=== PATIENT | female | born 2000 | race Caucasian/White ===

== ENCOUNTER 2020-01-19 09:56 | Emergency (ER) | payer OTHER ==
[2020-01-19] MEDS ORDERED: Acetaminophen TAB* 325 MG PO ONE (10:14)
--- NOTE | 2020-01-19 10:29 | ED ---
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 Patient states that she got into a skiing accident that resulted in her falling directly onto her back. Patient states that she was not able to get up immediately after the accident. Patient reports having pain while taking deep breaths and having pain while walking. She denies head injury, loss of consciousness, neck pain, leg pain, fecal and urinary dysfunction. Patient denies PMHx of scoliosis. Patient took ibuprofen at 0845 on 01/19/2020. Patient' s last menstrual cycle was last week and she denies smoking, alcohol usage, and recreational drug usage. Home Medications Medication Instructions Recorded Confirmed Type Cyclobenzaprine 5 MG (NF) .ROUTE PRN 01/19/20 History - History of Current Complaint Chief Complaint: EDBackInjuryPain Stated Complaint: INJURIES FROM SKIING ACCIDENT PER PT Time Seen by Provider: 01/19/20 10:04 Hx Obtained From: Patient Onset/Duration: Sudden Onset, Still Present Onset/Duration: Still Present Severity Currently: Moderate Pain Intensity: 7 Associated Signs And Symptoms: Negative: Bladder Incontinence, Bowel Incontinence, Other - No loss of conciousness, leg pain, neck pain, head injury - Allergies/Home Medications Allergies/Adverse Reactions: Allergies Allergy/AdvReac Type Severity Reaction Status Date / Time pineapple Allergy Abdominal Verified 01/19/20 10:02 Pain Tree Nuts Allergy Anaphylatic Verified 01/19/20 10:02 Shock stone fruit Allergy Swelling Uncoded 01/19/20 10:02 Of Face,Lips,& Throat Home Medications: Home Medications Cyclobenzaprine 5 MG (NF) .ROUTE PRN 01/19/20 [History] HYDROcodone/ACETAMIN 5-325 MG* [Rockwood 5-325 TAB*] 1 tab PO Q6H PRN #10 tab MDD 4 01/19/20 [Rx] Ibuprofen TAB* [Motrin TAB* 600 MG] 600 mg PO Q8H PRN #30 tab 01/19/20 [Rx] PMH/Surg Hx/FS Hx/Imm Hx Sensory History: Denies: Hx Legally Blind, Hx Deafness Opthamlomology History: Denies: Hx Legally Blind EENT History: Denies: Hx Deafness - Surgical History Surgical History: Yes - Hand sugery, tonsilectomy. Infectious Disease History: No Infectious Disease History: Denies: Traveled Outside the [place] in Last 30 Days - Family History Known Family History: Negative: Diabetes - Social History Alcohol Use: Occasionally Substance Use Type: Reports: None Smoking Status (MU): Never Smoked Tobacco Review of Systems Positive: no symptoms reported - No fecal or urinary dysfunction. Positive: Other - Back pain present. No leg pain, no neck pain Neurological/Mental Status: Other - negative - head injury Negative: Syncope - No LOC All Other Systems Reviewed And Are Negative: Yes Physical Exam - Summary Physical Exam Summary: VITAL SIGNS: Reviewed. GENERAL: Patient is a well-developed and nourished female who is lying comfortable in the stretcher. Patient is not in any acute respiratory distress. T-spine tenderness present at palpation. HEAD AND FACE: No signs of trauma. No ecchymosis, hematomas or skull depressions. No sinus tenderness. EYES: PERRLA, EOMI x 2, No injected conjunctiva, no nystagmus. EARS: Hearing grossly intact. Ear canals and tympanic membranes are within normal limits. MOUTH: Oropharynx within normal limits. NECK: Supple, trachea is midline, no adenopathy, no JVD, no carotid bruit, neck with full ROM. CHEST: Symmetric, no tenderness at palpation. LUNGS: Clear to auscultation bilaterally. No wheezing or crackles. CVS: Regular rate and rhythm, S1 and S2 present, no murmurs or gallops appreciated. ABDOMEN: Soft, non-tender. No signs of distention. No rebound, no guarding, and no masses palpated. Bowel sounds are normal. EXTREMITIES: FROM in all major joints, no edema, no cyanosis or clubbing. NEURO: Alert and oriented x 3. No acute neurological deficits. Speech is normal and follows commands. SKIN: Dry and warm. Triage Information Reviewed: Yes Vital Signs On Initial Exam: Initial Vitals Temp Pulse Resp BP Pulse Ox 96.8 F 79 16 125/80 97 01/19/20 09:58 01/19/20 09:58 01/19/20 09:58 01/19/20 09:58 01/19/20 09:58 Vital Signs Reviewed: Yes Procedures - Sedation Patient Received Moderate/Deep Sedation with Procedure: No Diagnostics - Vital Signs Vital Signs Temp Pulse Resp BP Pulse Ox 01/19/20 09:58 96.8 F 79 16 125/80 97 - Laboratory Lab Statement: Any lab studies that have been ordered have been reviewed, and results considered in the medical decision making process. - Radiology Thoracic Spine XRAY Radiology Interpretation Completed By: Radiologist Summary of Radiographic Findings: IMPRESSION: #. Mild anterior column superior endplate compression fracture at the approximate T7. vertebral body with up to 0.25 cm depression of the endplate at the anterior third. No. evidence for involvement of the middle column. #. Results discussed with Dr. Ann at 2019 10:46 AM EST. ED physician has reviewed this image. 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 Patient states that she got into a skiing accident that resulted in her falling directly onto her back. Patient states that she was not able to get up immediately after the accident. Patient reports having pain while taking deep breaths and having pain while walking. She denies head injury , loss of consciousness, neck pain, leg pain, fecal and urinary dysfunction. Patient denies PMHx of scoliosis. Patient took ibuprofen at 0845 on 01/19/2020. Patient's last menstrual cycle was last week and she denies smoking, alcohol usage, and recreational drug usage. T spine IMPRESSION: #. Mild anterior column superior endplate compression fracture at the approximate T7 vertebral body with up to 0.25 cm depression of the endplate at the anterior third. Noevidence for involvement of the middle column. Since there is no retropulsion , and no involvement of the middle column, I will discharge the patient home with follow-up with neurosurgery. Patient will be given a prescription for Rockwood for pain. She also will be taken ibuprofen. The patient was ambulated with minimal pain. The patient denies any urinary or fecal dysfunction. She doesnt have any numbness or weakness in the upper extremities. She was given instructions to return to the emergency department if she develops any other symptom. The patient understands and agrees. - Diagnoses Provider Diagnoses: T7 vertebral fracture Discharge ED - Sign-Out/Discharge Documenting (check all that apply): Patient Departure - Discharge - Discharge Plan Condition: Stable Disposition: HOME Prescriptions: HYDROcodone/ACETAMIN 5-325 MG* [Rockwood 5-325 TAB*] 1 tab PO Q6H PRN #10 tab MDD 4 PRN Reason: Pain - Severe Ibuprofen TAB* [Motrin TAB* 600 MG] 600 mg PO Q8H PRN #30 tab PRN Reason: Pain - Moderate Patient Education Materials: Vertebral Compression Fracture (ED) Referrals: [facility] - Shefali VERMAll [Primary Care Provider] - Chirag Giles MD [Medical Doctor] - Additional Instructions: Please return to the ER with any new or worsening symptoms. Please follow up with neurosurgery within 3 days. Please refrain from participating in sports, heavy lifting, and bending over. - Billing Disposition and Condition Condition: STABLE Disposition: Home - Attestation Statements Document Initiated by Estrellitaibe: Yes Documenting Scribe: Esvin Smith Provider For Whom Mary is Documenting (Include Credential): Ventura Ann MD Scribe Attestation: Esvin Mcclure, scribed for Ventura Ann MD on 01/20/20 at 0827. Scribe Documentation Reviewed: Yes Provider Attestation: The documentation as recorded by the estrellitaibe, Esvin Smith accurately reflects the service I personally performed and the decisions made by Ventura rodriguez MD Status of Scribe Document: Viewed
[2020-01-19 11:41] VITALS: BP 128/58
== END 2020-01-19 11:43 | disposition home or self-care (01) ==
LOC: ED 09:56
DX: S22.069A Unspecified fracture of T7-T8 vertebra, initial encounter for closed fracture (principal); M54.9 Dorsalgia, unspecified; W19.XXXA Unspecified fall, initial encounter; Y93.23 Activity, snow (alpine) (downhill) skiing, snowboarding, sledding, tobogganing and snow tubing; Y92.9 Unspecified place or not applicable
CPT/HCPCS: 36415; 72070; 84702; 99282; A9270-GY